=== PATIENT | male | born 1985 | race Caucasian/White ===

== ENCOUNTER 2018-02-12 19:36 | Emergency (ER) | payer SELFPAY ==
[~2018-02-12] VITALS: Ht 170.2 cm; Wt 59.0 kg
[2018-02-12 19:50] VITALS: BP 117/70
[2018-02-12] MEDS ORDERED: SILVER SULFADIAZINE CREAM 25 GM TUBE ONE (21:15)
[2018-02-12] MEDS ORDERED: SILVER SULFADIAZINE CREAM 25 GM TUBE TP ONE (21:30)
== END 2018-02-12 21:42 | disposition home or self-care (01) ==
LOC: ER 19:40
DX: T24.202A Burn of second degree of unspecified site of left lower limb, except ankle and foot, initial encounter (principal); Z60.2 Problems related to living alone; V28.3XXA Person boarding or alighting a motorcycle injured in noncollision transport accident, initial encounter; Y93.89 Activity, other specified; Y92.413 State road as the place of occurrence of the external cause; Y99.8 Other external cause status
CPT/HCPCS: A4606; Z7610